=== PATIENT | female | born 1975 | race Caucasian/White ===

== ENCOUNTER 2017-04-24 13:55 | Outpatient (CLI) | payer MEDICAID ==
[2017-04-29] MEDS ORDERED: MOTRIN-DPS800 MG PO (15:36)
== END 2017-04-24 16:05 | disposition home or self-care (01) ==
LOC: 2LDRP 13:55 → BC 13:55
DX: O47.1 False labor at or after 37 completed weeks of gestation (principal); Z3A.38 38 weeks gestation of pregnancy

== ENCOUNTER 2017-04-26 00:40 | Outpatient (CLI) | payer MEDICAID ==
[2017-04-29] MEDS ORDERED: MOTRIN-DPS800 MG PO (15:36)
== END 2017-04-26 03:30 | disposition home or self-care (01) ==
LOC: BC 00:40 → 2LDRP 00:40 → BC 03:30
DX: O42.92 Full-term premature rupture of membranes, unspecified as to length of time between rupture and onset of labor (principal); O09.93 Supervision of high risk pregnancy, unspecified, third trimester; Z3A.38 38 weeks gestation of pregnancy

== ENCOUNTER 2017-04-26 16:20 | Outpatient (CLI) | payer MEDICAID ==
[2017-04-29] MEDS ORDERED: MOTRIN-DPS800 MG PO (15:36)
== END 2017-04-26 19:45 | disposition home or self-care (01) ==
LOC: BC 16:20 → 2LDRP 16:20 → BC 19:45
DX: O47.1 False labor at or after 37 completed weeks of gestation (principal); Z3A.39 39 weeks gestation of pregnancy

== ENCOUNTER 2017-04-27 09:50 | Inpatient (IN) | payer MEDICAID ==
[~2017-04-27] VITALS: Ht 152.4 cm; Wt 79.8 kg
--- NOTE | ~2017-04-27 | HP ---
ADMIT: 04/27/2017 RM/LOC: 222 [facility] MR#: [id number] [address] [facility] [address] [place], [place] [address] BLANCA MADERA, NEHEMIAH [address] [address] History and Physical SEX: F AGE: 41 : 1975 DATE OF SERVICE: 04/27/2017 HISTORY OF PRESENT ILLNESS: This is a 41-year-old G4, P3-0-0-2 who presents to Labor and Delivery with an intrauterine at 39 weeks and 12/06 days with complaints of regular painful contractions. She denies any fevers, chills, chest pain, shortness of breath, nausea, vomiting, or diarrhea. No loss of fluid. No vaginal bleeding, and she does indicate good movement. She has had contractions for several days and had been triaged every day for the last four days with no cervical change. is complicated by late entry to care likely chronic hypertension and obesity. PAST MEDICAL HISTORY: Likely chronic hypertension and advanced maternal age. SURGICAL HISTORY: None. SOCIAL HISTORY: She is . She speaks Kazakh. No tobacco, no alcohol, no drug use. ALLERGIES: NO KNOWN DRUG ALLERGIES. MEDICATIONS: She takes vitamin daily. Three prior spontaneous vaginal deliveries at term. Last one was almost 22 years ago. OB LABS: GBS negative. Her 1-hour Glucola was 119. Hepatitis B surface antigen was negative. Syphilis testing, RPR was nonreactive. Rubella immune. Gonorrhea and chlamydia were both negative. Her Pap smear was normal. She is blood type A positive, antibody screen was negative and HIV negative. PHYSICAL EXAMINATION: VITAL SIGNS: Blood pressure is 142/60, pulse is 80. Temperature is 98.6, and she is 96% on room air. heart tones 150, moderate variability, positive accelerations, no decelerations. [place] shows contractions every 4 minutes. GENERAL: The patient is uncomfortable with contractions. HEART: Regular rate and rhythm. No murmurs, rubs, or gallops. LUNGS: Clear to auscultation bilaterally. ABDOMEN: Positive bowel sounds ADMIT: 04/27/2017 RM/LOC: 222 [facility] MR#: [id number] [address] [facility] [address] [place], [place] [address] [facility] PRINCE, NEHEMIAH [address] [place] [address] History and Physical SEX: F AGE: 41 : 1975 and gravid. Estimated weight is 3500 g. GENITOURINARY: Sterile cervical exam is 8, 90, -1, AROM with clear fluid. EXTREMITIES: No edema. DTRs are 2+. ASSESSMENT AND PLAN: This is a 41-year-old G4, P3-0-0-2 with intrauterine at 39 weeks and 1 day: 1. Active labor. Anticipate normal spontaneous vaginal delivery. 2. Group B streptococcus negative. Prophylaxis was not indicated. 3. Rh positive. Rubella immune. RhoGAM and MMR not indicated. 4. Elevated blood pressures. We will monitor and check urine protein to creatinine ratio and CMP. The patient was likely chronic hypertension based on blood pressure in clinic. Gwendolyn Ovalles MD/ disha JOB #: [id number] CC: Parminder Mata, Attending Physician Parminder Mata, Family Physician
--- NOTE | ~2017-04-27 | FD ---
ADMIT: 04/27/2017 RM/LOC: 222 [facility] MR#: [id number] 26[address] [facility] [address] [place], [place] [address] BLANCA MADERA, NEHEMIAH [address] [place] [address] Final Diagnosis SEX: F AGE: 41 : 1975 ADMISSION DATE: 04/27/2017 DISCHARGE DATE: 04/28/2017 FINAL DIAGNOSIS: 1. Term intrauterine at 39 weeks 1 day. 2. Active labor. 3. Advanced maternal age. 4. Chronic hypertension, possible superimposed preeclampsia. 5. Obesity. PROCEDURE: Spontaneous vaginal delivery. Gwendolyn Ovalles MD/ tamie JOB #: [id number] CC: Parminder Mata MD, Attending Physician Parminder Mata MD, Family Physician
[2017-04-29] MEDS ORDERED: MOTRIN-DPS800 MG PO (15:36)
--- NOTE | 2017-05-13 08:59 | OR ---
ADMIT: 04/27/2017 RM/LOC: [address] [facility] MR#: [id number] 26[address] [facility] [address] [place], [place] [address] BLANCA MADERA, NEHEIMAH [address] [address] Operative/Delivery Room Report SEX: F AGE: 41 : 1975 SURGERY DATE: 04/27/2017 SURGEON: Gwendolyn Ovalles MD PREOPERATIVE DIAGNOSES: 1. Term intrauterine at 39 and 1/7th weeks. 2. Active labor. 3. Advanced maternal age. 4. Wheezing. 5. Chronic hypertension with possible preeclampsia. POSTOPERATIVE DIAGNOSES: 1. Term intrauterine at 39 and 1/7th weeks. 2. Active labor. 3. Advanced maternal age. 4. Wheezing. 5. Chronic hypertension with possible preeclampsia. PROCEDURE: Spontaneous vaginal delivery. FINDINGS: Viable female infant with scores of 8 and 9 and a weight of 5 pounds 14.5 ounces (2.75 kg). Intact placenta with 3-vessel cord. Small hemostatic first-degree perineal laceration noted, not requiring repair. INDICATIONS FOR PROCEDURE: This is a 41-year-old, G4, P3-0-0-2, who presented to Labor and Delivery at 39 and 1/7th weeks in active labor. Her has been complicated by the above diagnoses. She is GBS negative. She was augmented with AROM and Pitocin and was progressed normally through labor and was found to be complete. PROCEDURE IN DETAIL: With maternal expulsive efforts, the head was delivered over intact perineum. Nuchal cord x1 was noted and reduced. The rest of the was then delivered. The was placed on maternal chest, and delayed cord clamping was employed x1 minute. The cord was then ADMIT: 04/27/2017 RM/LOC: [address] [facility] MR#: [id number] 26[address] [facility] [address] [place] [id number] BLANCA UNDERWOOD TAM PRINCE, NEHEMIAH [address] [place] [address] Operative/Delivery Room Report SEX: F AGE: 41 : 1975 clamped and cut. Cord blood was collected, and the placenta then delivered spontaneously intact. On exam of the perineum, there was just a small first degree perineal laceration, that was hemostatic and did not require repair. Sponge and instrument counts were correct x2. ESTIMATED BLOOD LOSS: 300 mL. ANESTHESIA: None. COMPLICATIONS: None. DISPOSITION: Mom stable in delivery room. Infant to nursery. Gwendolyn Ovalles MD/ disha JOB #: [id number] CC: Parminder Mata, Attending Physician Parminder Mata, Family Physician
== END 2017-04-28 18:11 | disposition home or self-care (01) | DRG 774 ==
LOC: BC 09:50 → 2LDRP 09:50
PROC: 10907ZC Drainage of Amniotic Fluid, Therapeutic from Products of Conception, Via Natural or Artificial Opening (ICD-10-PCS; principal; 2017-04-27)
PROC: 10E0XZZ Delivery of Products of Conception, External Approach (ICD-10-PCS; principal; 2017-04-27)
DX: O11.4 Pre-existing hypertension with pre-eclampsia, complicating childbirth (principal); O10.02 Pre-existing essential hypertension complicating childbirth; E66.9 Obesity, unspecified; O69.81X0 Labor and delivery complicated by cord around neck, without compression, not applicable or unspecified; O99.214 Obesity complicating childbirth; Z68.36 Body mass index [BMI] 36.0-36.9, adult; Z3A.39 39 weeks gestation of pregnancy; Z37.0 Single live birth